=== PATIENT | female | born 1990 | race Caucasian/White ===

== ENCOUNTER 2018-11-28 17:47 | Outpatient (CLI) | payer OTHER ==
[~2018-11-28] VITALS: Ht 162.6 cm; Wt 92.7 kg
[~2018-11-28 17:47] MED LIST: FERR325T18 PO; IBUP-1222 PO; OXYC-302 PO; PREN1TAB52 PO
[2018-11-28 18:18] LABS: BASOPHILS # (AUTO) 0.02 x10^3/uL (0-0.1); BASOPHILS % (AUTO) 0 % (0-1); EOSINOPHILS # (AUTO) 0.08 x10^3/uL (0-0.4); EOSINOPHILS % (AUTO) 1 % (1-7); LYMPHOCYTES # (AUTO) 2.15 x10^3/uL (1-3.4); LYMPHOCYTES % (AUTO) 22 % (22-44); MD NO; MEAN CORPUSCULAR HGB CONC 32.9 g/dL (32.4-35.8); MEAN CORPUSCULAR VOLUME 82.2 fL (80-100); MEAN PLATELET VOLUME 8.4 fL (7.4-10.4); MONOCYTES # (AUTO) 0.63 x10^3/uL (0.2-0.8); MONOCYTES % (AUTO) 6 % (2-9); NEUTROPHILS # (AUTO) 6.96 x10^3/uL (1.8-6.8); NEUTROPHILS % (AUTO) 71 % (42-75); PLATELET COUNT 331 x10^3/uL (130-400); RED BLOOD COUNT 4.46 x10^6/uL (3.82-5.3); RED CELL DISTRIBUTION WIDTH 15.5 % (9.6-15.2)
[2018-11-28 18:29] LABS: ALBUMIN 2.7 g/dL (3.4-5.0); ANION GAP 8 mmol/L (5-15); CALCIUM 8.8 mg/dL (8.5-10.1); CHLORIDE 108 mmol/L (98-107)
[2018-11-28 18:30] VITALS: BP 123/81
[2018-11-28 18:33] LABS: ALANINE AMINOTRANSFERASE 24 U/L (12-78); ALKALINE PHOSPHATASE 191 U/L (45-117); BILIRUBIN,TOTAL 0.3 mg/dL (0.2-1.0); TOTAL PROTEIN 7.1 g/dL (6.4-8.2)
[2018-11-28 19:07] LABS: MICROSCOPIC INDICATED
[2018-11-28 19:47] LABS: CREATININE,URINE RANDOM 82.4 mg/dL
== END 2018-11-28 20:20 | disposition home or self-care (01) ==
LOC: LDOP 17:47
PROVIDERS: ATTEND Obstetrics & Gynecology
DX: Z34.83 Encounter for supervision of other normal pregnancy, third trimester (principal); Z3A.36 36 weeks gestation of pregnancy
CPT/HCPCS: 36415; 59025; 80053; 81001; 82570; 84156; 84550; 85025; 99211; G0463

== ENCOUNTER 2018-12-07 19:11 | Inpatient (IN) | payer OTHER ==
[~2018-12-07] VITALS: Ht 162.6 cm; Wt 98.2 kg
[2018-12-07] MEDS ORDERED: LACTATED RINGERS 1,000 ML IV SCH ×3 (19:39→21:28)
[2018-12-07] MEDS ORDERED: OXYTOCIN 30U/ 0.9% NaCL 500ML 500 ML IV PRN (19:39)
[2018-12-07] MEDS ORDERED: FENTANYL/BUPIV./NS/PF 250 ML EPIDCONT SCH ×2 (19:39→21:28)
[2018-12-07] MEDS ORDERED: D5%-LACTATED RINGERS 1,000 ML IV SCH (19:39)
[2018-12-07] MEDS ORDERED: OXYTOCIN 30U/ 0.9% NaCL 500ML 500 ML IV ONE (19:39)
[2018-12-07] MEDS ORDERED: MISOPROSTOL 200 MCG TABLET ONE (19:41)
[2018-12-07] MEDS ORDERED: NEWBORN KIT ONE (19:41)
[2018-12-07] MEDS ORDERED: LIDOCAINE 1%, 20ML ONE (19:41)
[2018-12-07] MEDS ORDERED: OXYTOCIN 30U/ 0.9% NaCL 500ML 500 ML ONE (19:41)
[2018-12-07] MEDS ORDERED: SODIUM CITRATE/CITRIC ACID 15 ML UDC PO PRN (20:00)
[2018-12-07] MEDS ORDERED: FENTANYL PF 100 MCG/2ML IVPush PRN (20:00)
[2018-12-07] MEDS ORDERED: FENTANYL PF 500 MCG, BUPIVACAINE/PF 0.5%, 30ML 62.5 ML in SODIUM CHLORIDE 0.9% 177.5 ML EPIDCONT SCH (20:00)
[2018-12-07] MEDS ORDERED: FENTANYL PF 100 MCG/2ML IV PRN (20:00)
[2018-12-07] MEDS ORDERED: EPHEDRINE 50 MG/ML, 1ML IVPush PRN ×2 (20:00→21:30)
[2018-12-07] MEDS ORDERED: LACTATED RINGERS 1,000 ML IVBOLUS PRN ×2 (20:00→21:30)
[2018-12-07] MEDS ORDERED: METOCLOPRAMIDE 5 MG/ML, 2ML IVPush PRN (20:00)
[2018-12-07] MEDS ORDERED: PLEASE ENTER HEIGHT AND WEIGHT MC SCH (20:00)
[2018-12-07 20:07] LABS: BASOPHILS # (AUTO) 0.04 x10^3/uL (0-0.1); BASOPHILS % (AUTO) 0 % (0-1); EOSINOPHILS # (AUTO) 0.07 x10^3/uL (0-0.4); EOSINOPHILS % (AUTO) 1 % (1-7); LYMPHOCYTES # (AUTO) 2.36 x10^3/uL (1-3.4); LYMPHOCYTES % (AUTO) 22 % (22-44); MD NO; MEAN CORPUSCULAR HGB CONC 33.1 g/dL (32.4-35.8); MEAN CORPUSCULAR VOLUME 81.4 fL (80-100); MEAN PLATELET VOLUME 8.8 fL (7.4-10.4); MONOCYTES # (AUTO) 0.74 x10^3/uL (0.2-0.8); MONOCYTES % (AUTO) 7 % (2-9); NEUTROPHILS # (AUTO) 7.35 x10^3/uL (1.8-6.8); NEUTROPHILS % (AUTO) 70 % (42-75); PLATELET COUNT 304 x10^3/uL (130-400); RED BLOOD COUNT 4.42 x10^6/uL (3.82-5.3)
[2018-12-07] MEDS ORDERED: FENTANYL PF 100 MCG/2ML ONE (20:22)
[2018-12-07] MEDS ORDERED: LIDOCAINE/PF 1.5%-EPI 1:200K, 30ML ONE (20:52)
[2018-12-07] MEDS ORDERED: BUPIVACAINE 0.25% ONE (20:52)
[2018-12-07] MEDS ORDERED: DIPHENHYDRAMINE 50 MG/ML, 1ML IVPush PRN (21:30)
[2018-12-07] MEDS ORDERED: NALOXONE 0.4 MG/ML, 1ML IVPush PRN (21:30)
[2018-12-07] MEDS ORDERED: ONDANSETRON 2MG/ML, 2ML IVPush PRN (21:30)
[2018-12-08 02:30] VITALS: BP 114/76
[2018-12-08 08:10] VITALS: BP 113/78
[2018-12-08 08:27] LABS: MEAN CORPUSCULAR HEMOGLOBIN 26.5 pg (27.0-34.8); MEAN CORPUSCULAR HGB CONC 32.6 g/dL (32.4-35.8); MEAN CORPUSCULAR VOLUME 81.1 fL (80-100); MEAN PLATELET VOLUME 8.6 fL (7.4-10.4); PLATELET COUNT 237 x10^3/uL (130-400); RED BLOOD COUNT 3.77 x10^6/uL (3.82-5.3)
[2018-12-08] MEDS: IBUPROFEN 600 MG TABLET PO PRN ×2 (08:49→20:10)
[2018-12-08 08:57] LABS: BASOPHILS # (AUTO) 0.03 x10^3/uL (0-0.1); BASOPHILS % (AUTO) 0 % (0-1); EOSINOPHILS # (AUTO) 0.07 x10^3/uL (0-0.4); EOSINOPHILS % (AUTO) 1 % (1-7); LYMPHOCYTES # (AUTO) 2.49 x10^3/uL (1-3.4); LYMPHOCYTES % (AUTO) 19 % (22-44); MD SCAN; MONOCYTES # (AUTO) 0.65 x10^3/uL (0.2-0.8); MONOCYTES % (AUTO) 5 % (2-9); NEUTROPHILS % (AUTO) 76 % (42-75)
[2018-12-08] MEDS ORDERED: BISACODYL 10 MG SUPP PR PRN (12:30)
[2018-12-08] MEDS ORDERED: GLYCERIN ADULT SUPP PR PRN (12:30)
[2018-12-08] MEDS ORDERED: CARBOPROST TROMETHAMINE 250 MCG/ML, 1ML IM PRN (12:30)
[2018-12-08] MEDS ORDERED: IBUPROFEN 600 MG TABLET PO PRN (12:30)
[2018-12-08] MEDS ORDERED: METOCLOPRAMIDE 5 MG/ML, 2ML IV PRN (12:30)
[2018-12-08] MEDS ORDERED: OXYcodone/APAP 5/325MG TABLET PO PRN ×2 (12:30)
[2018-12-08] MEDS ORDERED: ACETAMINOPHEN 325 MG TABLET PO PRN (12:30)
[2018-12-08] MEDS ORDERED: ONDANSETRON 2MG/ML, 2ML IV PRN (12:30)
[2018-12-08] MEDS: OXYTOCIN 30U/ 0.9% NaCL 500ML 500 ML IV SCH ×2 (12:30→22:30)
[2018-12-08] MEDS ORDERED: MISOPROSTOL 200 MCG TABLET PR PRN (12:30)
[2018-12-08] MEDS ORDERED: METHYLERGONOVINE 0.2 MG/ML IM PRN (12:30)
[2018-12-08 13:00] VITALS: BP 115/76
[2018-12-08 20:00] VITALS: BP 113/79
[2018-12-08] MEDS: DOCUSATE 100 MG CAPSULE PO PRN (20:10)
[2018-12-09 08:34] VITALS: BP 93/62
[2018-12-09] MEDS: DOCUSATE 100 MG CAPSULE PO PRN (08:49)
[2018-12-09] MEDS ORDERED: PRENATAL VIT/IRON/FA 1 EACH TABLET PO SCH (09:00)
[2018-12-09] MEDS: IBUPROFEN 600 MG TABLET PO PRN (17:53)
== END 2018-12-09 19:00 | disposition home or self-care (01) | DRG 807 ==
LOC: LDOP 19:11 → LDIP 19:35 → 2NW 12-08 02:26
PROVIDERS: ADMIT Obstetrics & Gynecology; ATTEND Obstetrics & Gynecology
PROC: 10E0XZZ Delivery of Products of Conception, External Approach (ICD-10-PCS; principal; 2018-12-08)
PROC: 0HQ9XZZ Repair Perineum Skin, External Approach (ICD-10-PCS; 2018-12-08)
PROC: 3E0R3BZ Introduction of Anesthetic Agent into Spinal Canal, Percutaneous Approach (ICD-10-PCS; 2018-12-08)
PROC: 00HU33Z Insertion of Infusion Device into Spinal Canal, Percutaneous Approach (ICD-10-PCS; 2018-12-08)
DX: O69.81X0 Labor and delivery complicated by cord around neck, without compression, not applicable or unspecified (principal); Z37.0 Single live birth; O70.0 First degree perineal laceration during delivery; Z3A.38 38 weeks gestation of pregnancy
CPT/HCPCS: 36415; J3490; S0020; 85025; 86850; 86900; 89060; G0378; J3010; J2590; J7050; J7120; Q0114